=== PATIENT | male | born 1975 ===

== ENCOUNTER 2018-03-20 05:14 | Inpatient (IN) | payer OTHER ==
[2018-03-20] VITALS (14 sets, daily range): BP systolic 120–136; BP diastolic 70–97
[~2018-03-20] VITALS: Ht 177.8 cm; Wt 104.3 kg
[2018-03-20] MEDS ORDERED: LOSARTAN POTASS25 MG ORAL (06:04)
[2018-03-20] MEDS ORDERED: LATANOPROST2.5 ML BOTH EYES (06:04)
[2018-03-20] MEDS ORDERED: METFORMIN HCL500 M1 ORAL (06:04)
[2018-03-20] MEDS ORDERED: fentaNYL 100 mcg/2 mL IV ONE ×2 (06:18→09:31)
[2018-03-20] MEDS ORDERED: Midazolam 2mg/2ml Inj ONE (06:18)
[2018-03-20] MEDS ORDERED: Sodium Chloride 10ml vial INJ ONE ×2 (06:26→10:02)
[2018-03-20] MEDS ORDERED: Lidocaine 1% Plain 30 ml INJ ONE ×3 (06:30→10:05)
[2018-03-20] MEDS ORDERED: Thrombin 5000 units TOPIC ONE (06:31)
[2018-03-20] MEDS ORDERED: Lidocaine 1% MPF 10mg/ml 5ml ONE (06:32)
[2018-03-20] MEDS ORDERED: Bacitracin 50000 Units Vial ONE (06:32)
[2018-03-20] MEDS ORDERED: Zemuron 50mg/5ml Inj IV ONE (06:40)
[2018-03-20] MEDS ORDERED: LR 1000ml 1,000 ML IVLG SCH (06:50)
[2018-03-20] MEDS ORDERED: Atropine Inj 1mg/10ml Syr IV PRN (07:00)
[2018-03-20] MEDS ORDERED: Norco 5mg/325mg tab ORAL PRN (07:00)
[2018-03-20] MEDS ORDERED: Ketorolac 30mg Inj IV PRN ×2 (07:00)
[2018-03-20] MEDS ORDERED: Midazolam 2mg/2ml Inj IVP PRN (07:00)
[2018-03-20] MEDS ORDERED: DiphenhydrAMINE 50mg/ml Inj IVP PRN (07:00)
[2018-03-20] MEDS ORDERED: Hydromorphone 0.5mg/0.5ml inj IVP PRN (07:00)
[2018-03-20] MEDS ORDERED: LORazepam Inj 2mg/ml 1ml IV PRN (07:00)
[2018-03-20] MEDS ORDERED: oxyCODONE HCL/Acetaminophen 5/325mg ORAL PRN (07:00)
[2018-03-20] MEDS ORDERED: fentaNYL 100 mcg/2 mL IV PRN (07:00)
[2018-03-20] MEDS ORDERED: HYDROcodone/Acetamin 7.5/325 tab ORAL PRN (07:00)
[2018-03-20] MEDS ORDERED: Dexamethasone 20mg/5ml IVP ONE (07:00)
[2018-03-20] MEDS ORDERED: ceFAZolin sod 1 GM in D5W 55 ML IVPB ONE (07:00)
[2018-03-20] MEDS ORDERED: Labetalol 5mg/ml 20ml vial IV PRN (07:00)
[2018-03-20] MEDS ORDERED: Acetaminophen (Non formulary) 100 ML IV ONE (07:00)
--- NOTE | 2018-03-20 07:17 | Anethesia Preoperative Eval ---
Anesthesia Pre-op PMH/ROS General Date of Evaluation: Mar 20, 2018 Time of Evaluation: 07:16 Anesthesiologist: Clem ASA Score: ASA 2 Mallampati Score Class I : Soft palate, uvula, fauces, pillars visible Class II: Soft palate, uvula, fauces visible Class III: Soft palate, base of uvula visible Class IV: Only hard plate visible Mallampati Classification: Class II Surgeon: Sanjuana Surgical Procedure: ACDF C4-5, C5-6 Anesthesia History: none Family History: no anesthesia problems Allergies: Coded Allergies: No Known Allergies (Unverified , 03/19/18) Medications: see eMAR Past Medical History Cardiovascular: Reports: HTN Endocrine: Reports: DM HEENT: Reports: glaucoma - OD Other: obesity - 38 PSxH Narrative: Past SX Anesthesia Pre-op Phys. Exam Physician Exam Last Vital Signs Date Time Temp Pulse Resp B/P (MAP) Pulse Ox O2 Delivery O2 Flow Rate FiO2 03/20/18 05:56 97.2 67 18 123/70 98 Room Air 97.2 Constitutional: NAD Neurologic: CN 2-12 intact Cardiovascular: RRR Respiratory: CTA Gastrointestinal: S/NT/ND Airway Exam Mallampati Score: Class II MO: full ROM: limited Teeth: intact Anesthesia Pre-op A/P Risk Assessment & Plan Assessment: ASA 2 Plan: GA, BIS, GlideScope Status Change Before Surgery: No Pre-Antibiotics Dru Grams Ancef IV Given Within 1 Hr of Incision: Yes Time Given: 08:46 Lopez Pickard MD Mar 20, 2018 07:16
--- NOTE | 2018-03-20 07:17 | Immediate Post-Op Evaluation ---
Immediate Post-Op Evalulation Immediate Post-Op Evalulation Procedure: ACDF C4-5, C5-6 Date of Evaluation: Mar 20, 2018 Time of Evaluation: 11:57 IV Fluids: 800 LR Blood Products: 0 Estimated Blood Loss: 30 Urinary Output: 0 Blood Pressure Systolic: 127 Blood Pressure Diastolic: 97 Pulse Rate: 76 Respiratory Rate: 16 O2 Sat by Pulse Oximetry: 99 Temperature (Fahrenheit): 98.2 Pain Score (1-10): 3 Nausea: No Vomiting: No Complications 0 Patient Status: awake, reacts, patent, extubated, none Hydration Status: adequate Dru Grams Ancef IV Given Within 1 Hr of Incision: Yes Time Given: 08:46 Lopez Pickard MD Mar 20, 2018 07:17
--- NOTE | 2018-03-20 07:29 | Pre-Procedure Note/Attestation ---
Pre-Procedure Note/Attestation Complete Prior to Procedure Planned Procedure: not applicable Procedure Narrative: ACDF C4-C5, C5-C6. Anterior internal plate fixation Indications for Procedure Pre-Operative Diagnosis: Post trauma neck pain HNP radiculopathy Attestation I attest that I discussed the nature of the procedure; its benefits; risks and complications; and alternatives (and the risks and benefits of such alternatives ), prior to the procedure, with the patient (or the patient's legal teleservices representative). I attest that, if there was a reasonable possibility of needing a blood transfusion, the patient (or the patient's legal teleservices representative) was given the [place] [employer] standardized written summary, pursuant to the [place] Blood Safety Act ([place] Health and Safety Code # 1645, as amended). I attest that I re-evaluated the patient just prior to the surgery and that there has been no change in the patient's H&P, except as documented below: HANS MONTGOMERY Mar 20, 2018 07:29
--- NOTE | 2018-03-20 11:42 | Brief Operative Note ---
Immediate Post Operative Note Operative Note Pre-op Diagnosis: Post trauma neck pain HNP radiculopathy Procedure: ADR C4-5, C5-6 High Power Magnification Dissection SSEP Xray Post-op Diagnosis: same as pre-op Findings: consistent w/pre-op dx studies Surgeon: Sanjuana JI Jacquard Loom Card Changer: Roselia BEVERLY Anesthesiologist: Melly JI Anesthesia: general Specimen: yes Complications: none Condition: stable Fluids: anesthesia Estimated Blood Loss: minimal Drains: none Implant(s) used?: Yes HANS MONTGOMERY Mar 20, 2018 11:42
[2018-03-20] MEDS ORDERED: Chloraseptic Spray 20mL Bottle ORAL PRN (13:45)
[2018-03-20] MEDS: D5 1/2NS 1,000 ML IV SCH ×2 (13:59→20:46)
[2018-03-20] MEDS ORDERED: HYDROcodone/Acetamin 10/325 tab ORAL PRN (14:30)
[2018-03-20] MEDS ORDERED: ceFAZolin sod 1 GM in D5W 55 ML IV SCH (17:00)
--- NOTE | 2018-03-20 17:41 | Diagnostic Imaging Report ---
Indication: Pain Technique: Intraoperative fluoroscopic images Operating surgeon: Sanjuana Fluoroscopy time: 18.9 Seconds [place] dose: 2.53 mGy Comparison: None Findings: 2 fluoroscopic intraoperative image obtained of the cervical spine. Intraoperative images demonstrate surgical material overlying the lower cervical spine with eventual disc replacement at C4-C5 and C5-C6. Impression: Intraoperative fluoroscopic images submitted for archival to PACS. Please see operative report.
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
[2018-03-20] MEDS ORDERED: TransDerm Scop 1mg/72HR Patch TDERMAL SCH (21:30)
--- NOTE | 2018-03-21 02:45 | Operative Note - Dictated ---
DATE OF OPERATION: 03/20/2018 ADMITTING/PREOPERATIVE DIAGNOSIS: Posttraumatic cervical myeloradiculopathy, neurologic deficit. POSTOPERATIVE DIAGNOSIS: Posttraumatic cervical myeloradiculopathy, neurologic deficit. SURGEON: Cheko Wei, Ph.D., M.D. COMPUTER SYSTEMS TECHNOLOGY INSTRUCTOR SURGEON: SIRIA Drake. ANESTHESIOLOGIST: Lopez Pickard M.D. ANESTHESIA: General with intubation. ESTIMATED BLOOD LOSS: Minimal. COMPLICATIONS: None. POSTOPERATIVE CONDITION: Good/stable. SPECIMENS: Disk material C4-C5 and C5-C6 to pathology. OPERATIVE PROCEDURE: 1. C4-C5 artificial disk replacement. 2. C5-C6 artificial disk replacement.. 3. Intraoperative fluoroscopy interpreted by surgeon. 4. High-powered magnification dissection. 5. SSEP monitoring. DESCRIPTION OF PROCEDURE: The patient was brought to the operating room and in a supine position, general anesthesia with intubation was induced. IV antibiotics, IV Decadron were administered 30 minutes prior to the incision time. After appropriate supine positioning, a needle was placed on the contralateral aspect of the neck and taped into position without penetration at the dermis/epidermis at anytime. Fluoroscopic imaging in a cross-table format was obtained demonstrating a correct level for incision placement. The left side of neck was marked appropriately within skin fold. This was undertaken under sterile conditions. Needle was removed with tape on the contralateral aspect of the neck. Anterior cervical spine was sterilely prepped and draped free in usual sterile fashion. Transverse incision as previously marked was utilized on the anterior lateral aspect of the left neck within skin fold at the appropriate interval. Electrocautery dissection was carried through subcutaneous tissue to the level of the platysmus muscle, it was identified, isolated, and transected along with the incision. Further dissection was carried sequentially through the deep cervical and pretracheal fascia medial to the left sternocleidomastoid muscle and the carotid sheath. SSEP monitoring stable. Midline identified. Spinal needle placed into the disk space. The spinal needle previously bent at 90 degree angles to avoid penetration greater than 3 mm. Cross-table radiograph was obtained demonstrating the correct level for the dissection. Midas Kameron bur was utilized to edinson the appropriate interval. Needle removed. Longus coli muscles elevated subperiosteally not exceeding 3 mm in medial to lateral extents over the appropriate intervals. C5-C6: Annulotomy was performed with anterior osteophyte noted. Diskectomy was performed to the posterior longitudinal ligament. Vertebral body endplates were denuded of cartilaginous material and remodeled into soft surface with Midas Kameron bur dissection and high-power magnification. Posterior longitudinal ligament was resected. Decompression of the spinal cord was undertaken with the excision of the posterior spondylotic bar. No dural tears or leaks occurred at any time during the procedure. SSEP monitoring was stable. Appropriate dimension with trial utilization and cross-table fluoroscopic imaging was undertaken with determination of height with an appropriate depth for prosthesis. Interval insertion under manufacture guidelines was undertaken with sequential drilling of the appropriate interval after fluoroscopic guidance demonstrated excellent alignment. The radial cutting followed with insertion of the prosthesis. Prosthesis inserted and cross-table imaging demonstrated excellent alignment and position. This was undertaken with the patient's neck maintained in a neutral posture. Attention was turned to the C4-C5 interval. Subperiosteal dissection of the longus colli muscles had been taken previously (please see above). Retractors placed. Spinal needle was placed into the disk space (it was previously noted to be bent at 90 degree angles to avoid penetration greater than 3 mm). A cross-table image was obtained under sterile conditions demonstrating the correct level for the dissection. Level was marked. Needle removed. Under high-power magnification, annulotomy was followed with diskectomy and excision of the cartilaginous endplates sites with maintenance of integrity of the subchondral bone. Posterior longitudinal ligament was resected. Posterior osteophytes resected was under high-power magnification. SSEP monitoring stable at all times. No evidence of dural tears or leaks at anytime. After appropriate sizing, instrumentation utilization was noted for the C5-C6 internal. utilized. The appropriate prosthesis inserted. Fluoroscopic guidance demonstrated excellent alignment and position. Anterior bleeding bone was cauterized by application of sterile wax. Wound was irrigated with antibiotic-containing saline. Exploration revealed no obvious excoriation or laceration of vital structures. FloSeal was applied. Sequential reapproximation of platysmas muscle and subcuticular closure of dermis and epidermis. Transverse surgical strips applied followed with Dermabond. Once the Dermabond was solid, anterior bandage was placed and maintained in place with tape. The patient was awakened, extubated in the operating room, and transported to postoperative recovery in good stable condition. Cheko Wei M.D. DR: Shanda JOB#: [id number] CC:
[2018-03-21 11:49] VITALS: BP 132/56
--- NOTE | 2018-03-21 11:49 | 48 Hour Post Anesthesia Eval ---
Post Anesthesia Evaluation Procedure: ACDF C4-5, C5-6 Date of Evaluation: Mar 20, 2018 Time of Evaluation: 15:50 Blood Pressure Systolic: 132 0: 56 Pulse Rate: 74 Respiratory Rate: 20 Temperature (Fahrenheit): 97.6 O2 Sat by Pulse Oximetry: 99 Airway: patent Nausea: No Vomiting: No Pain Intensity: 2 Hydration Status: adequate Cardiopulmonary Status: stable Mental Status/LOC: patient returned to baseline Follow-up Care/Observations: n/a Post-Anesthesia Complications: none Follow-up care needed: ready to discharge ABDOULAYE THOMPSON M.D. Mar 21, 2018 11:49
--- NOTE | 2018-03-21 17:52 | Discharge Summary ---
Discharge Summary Hospital Course Date of Admission Mar 20, 2018 at 05:14 Date of Discharge Mar 20, 2018 at 22:20 Admitting Diagnosis HPI Jefe Ritter, TAMEKA is a 42 year old male who was admitted on Mar 20, 2018 at 05 :14 for Cervical Discogenic Pain Hospital Course [id number] Discharge Discharge Disposition Patient was discharged to Home (01) Vanita Guillaume NP Mar 21, 2018 17:52
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
== END 2018-03-20 22:20 | disposition home or self-care (01) | DRG 518 ==
LOC: SDSOVERFLO 05:14 → 3E 13:06
PROC: 0RR30JZ Replacement of Cervical Vertebral Disc with Synthetic Substitute, Open Approach (ICD-10-PCS; principal; 2018-03-20 07:00)
DX: M50.021 Cervical disc disorder at C4-C5 level with myelopathy (principal); M50.121 Cervical disc disorder at C4-C5 level with radiculopathy; M48.02 Spinal stenosis, cervical region; V89.2XXS Person injured in unspecified motor-vehicle accident, traffic, sequela; E11.9 Type 2 diabetes mellitus without complications; E66.9 Obesity, unspecified; Z79.84 Long term (current) use of oral hypoglycemic drugs
CPT/HCPCS: 36415; 72040; 76001; 82962; 86850; 86900; 86901; 87081; J2250; J2405